=== PATIENT | female | born 1995 | race Caucasian/White ===

== ENCOUNTER 2021-04-04 19:20 | Emergency (ER) | payer MEDICAID ==
[~2021-04-04] VITALS: Ht 167.6 cm; Wt 78.0 kg
[2021-04-04 19:26] VITALS: BP_SYST 124
--- NOTE | 2021-04-04 19:31 | NUR ---
pt bib [facility] for complaints of headache and tachycardia. A&Ox4, and 4/10 pain. pt states she was in the pool for one hour and went to take a shower after and strarted having a strong headache. pt smoked some marijuana to calm herself down and it got worse. pts hr with the medics was 140s but on our monitor it is around 110s. pt still has same complaints of ALVAREZ and nausea with one episode of vomiting. pt had 4 zofran on field with some relief.
--- NOTE | 2021-04-04 19:45 | NUR ---
ER at bedside examining patient.
--- NOTE | 2021-04-04 20:00 | NUR ---
pt vomited x2, states she feels alot better
--- NOTE | 2021-04-04 20:30 | NUR ---
Patient transported to radiology via gurney, accompanied by yesy.
--- NOTE | 2021-04-04 21:00 | NUR ---
lab called for the delayed lab draw, told they will arrive soon
[2021-04-04 22:42] LABS: BASOPHILS # (AUTO) 0.1 K/uL (0.0-0.2); BASOPHILS % (AUTO) 0.3 % (0.0-2.0); EOSINOPHILS % (AUTO) 0.1 % (0.0-4.0); HEMATOCRIT 39.4 % (36-48); HEMOGLOBIN 13.1 g/dL (12.0-16.0); LYMPHOCYTES # (AUTO) 3.2 K/uL (1.0-5.5); MEAN CORPUSCULAR HEMOGLOBIN 28 pg (27-31); MEAN CORPUSCULAR HGB CONC 33 % (32-36); MEAN CORPUSCULAR VOLUME 83 fL (79.0-98.0); MONOCYTES # (AUTO) 0.6 K/uL (0.0-1.0); MONOCYTES % (AUTO) 3.5 % (1.7-9.3); NEUTROPHILS # (AUTO) 13.2 K/uL (1.8-7.7); NEUTROPHILS % (AUTO) 77.1 % (40.0-70.0); PLATELET COUNT (AUTO) 334 K/uL (130-430); RED BLOOD CELL COUNT(AUTO) 4.73 MIL/uL (4.2-6.2); RED CELL DISTRIBUTION WIDTH 14.5 % (9.0-15.0); WHITE BLOOD COUNT (AUTO) 17.1 K/uL (4.8-10.8)
[2021-04-04 22:58] LABS: CALCIUM 8.2 mg/dL (8.4-11.0); CREATININE 0.69 mg/dL (0.55-1.30); POTASSIUM 3.7 mmol/L (3.5-5.1)
[2021-04-04 23:03] LABS: ALBUMIN 3.7 g/dL (3.4-4.8); INR 0.9 (0.8-1.2); PROTHROMBIN TIME 9.9 SECS (9.5-12.5); TOTAL BILIRUBIN 0.4 mg/dL (0.0-1.0)
[2021-04-05] MEDS ORDERED: IOHEXOL 350 mgI/mL, 150 ML INFUS..BTL IV ONE (01:35)
--- NOTE | 2021-04-05 01:45 | NUR ---
Patient transported to radiology via WHEELCHAIR, accompanied by TECH.
[2021-04-05] MEDS ORDERED: ACETAMINOPHEN 500 MG TABLET PO ONE (03:00)
--- NOTE | 2021-04-05 03:10 | NUR ---
pt threw up immediadelty after taking the tylenol.
[2021-04-05] MEDS ORDERED: KETOROLAC TROMETHAMINE 60 MG/2 ML VIAL IM ONE (03:15)
[2021-04-05 03:33] VITALS: BP_SYST 127
== END 2021-04-05 03:35 | disposition home or self-care (01) ==
LOC: SED 19:20
DX: R55 Syncope and collapse (principal); R51.9 Headache, unspecified
CPT/HCPCS: 36415; 70450; 70496; 71045; 76376 ×2; 80053; 81025; 84484; 84702; 85025; 85610; 85730; 93005; 96372; 99285; J1885; Q9967; 83605